=== PATIENT | male | born 1995 | race African-American/Black ===

== ENCOUNTER 2018-04-03 12:14 | Emergency (ER) | payer OTHER ==
[~2018-04-03] VITALS: Ht 170.2 cm; Wt 91.4 kg
[~2018-04-03 12:14] MED LIST: LURA80 PO
[2018-04-03 12:48] VITALS: BP 127/74
[2018-04-03 13:51] LABS: EOSINOPHILS % (AUTO) 2.5 % (1.0-6.0); HEMATOCRIT 39.4 % (41-53); HEMOGLOBIN 13.2 g/dL (13.5-17.5); LYMPHOCYTES # (AUTO) 2.7 K/uL (1.0-4.8); LYMPHOCYTES % (AUTO) 35.1 % (22.0-44.0); MEAN CORPUSCULAR HEMOGLOBIN 28.1 pg (26.0-34.0); MEAN CORPUSCULAR HGB CONC 33.5 G/dL (31.0-37.0); MEAN CORPUSCULAR VOLUME 84 fL (80-100); MONOCYTES # (AUTO) 0.7 K/uL (0.1-1.0); MONOCYTES % (AUTO) 8.9 % (2.0-9.0); NEUTROPHILS # (AUTO) 4.1 K/uL (1.8-7.7); NEUTROPHILS % (AUTO) 52.5 % (40.0-70.0); PLATELET COUNT (AUTO) 325 K/uL (150-450); RED BLOOD CELL COUNT(AUTO) 4.68 MIL/uL (4.50-5.90); RED CELL DISTRIBUTION WIDTH 14.3 % (11.5-14.5)
[2018-04-03 14:02] LABS: ANION GAP 10 mmol/L (8-16); CARBON DIOXIDE 26 mmol/L (22-29); CHLORIDE 104 mmol/L (98-107); CREATININE 0.98 mg/dL (0.60-1.30); GLOMERULAR FILTR. RATE CALC > 60 mL/min (>60); GLUCOSE,RANDOM 113 mg/dL (70-110); POTASSIUM 3.6 mmol/L (3.5-5.1); SODIUM SERUM 140 mmol/L (136-145); UREA NITROGEN, BLOOD 5 mg/dL (7-18)
[2018-04-03 14:08] LABS: ALANINE AMINOTRANSFERASE 22 U/L (12-78); ALBUMIN 3.5 g/dL (3.4-5.0); ALKALINE PHOSPHATASE 101 U/L (46-116); ASPARTATE AMINOTRANSFERASE 15 U/L (15-37); BILIRUBIN,TOTAL 0.4 mg/dL (0.1-1.0); TOTAL PROTEIN, SERUM 7.3 g/dL (6.4-8.2)
== END 2018-04-03 14:24 | disposition home or self-care (01) ==
LOC: EMS 12:16
DX: F32.9 Major depressive disorder, single episode, unspecified (principal); F20.9 Schizophrenia, unspecified
CPT/HCPCS: 36415; 80053; 85025; 99284; G0480

== ENCOUNTER 2019-12-23 17:09 | Emergency (ER) | payer OTHER ==
[~2019-12-23] VITALS: Ht 172.7 cm; Wt 86.4 kg
[~2019-12-23 17:09] MED LIST changes: -LURA80 PO; +LURA80TA2 PO
[2019-12-23] MEDS ORDERED: MULT1CAP32 PO (17:15)
[2019-12-23] MEDS ORDERED: HALO10 PO (17:15)
[2019-12-23] MEDS ORDERED: FLUO-191 PO (17:15)
[2019-12-23] MEDS ORDERED: OLAN7.5T2 PO ×2 (17:15→20:07)
[2019-12-23] MEDS ORDERED: BENZ2TAB10 PO (17:15)
[2019-12-23 19:35] LABS: BASOPHILS % (AUTO) 0.7 % (0.0-2.0); EOSINOPHILS % (AUTO) 1.3 % (1.0-6.0); HEMOGLOBIN 13.9 g/dL (13.5-17.5); LYMPHOCYTES # (AUTO) 3.7 K/uL (1.0-4.8); LYMPHOCYTES % (AUTO) 43.6 % (22.0-44.0); MEAN CORPUSCULAR HEMOGLOBIN 28.3 pg (26.0-34.0); MEAN CORPUSCULAR HGB CONC 33.2 G/dL (31.0-37.0); MEAN CORPUSCULAR VOLUME 86 fL (80-100); MONOCYTES # (AUTO) 0.7 K/uL (0.1-1.0); MONOCYTES % (AUTO) 8.2 % (2.0-9.0); NEUTROPHILS % (AUTO) 46.2 % (40.0-70.0); PLATELET COUNT (AUTO) 330 K/uL (150-450); RED BLOOD CELL COUNT(AUTO) 4.91 MIL/uL (4.50-5.90); RED CELL DISTRIBUTION WIDTH 13.6 % (11.5-14.5)
[2019-12-23 19:46] LABS: ANION GAP 7 mmol/L (8-16); CALCIUM, TOTAL 9.4 mg/dL (8.8-10.5); CARBON DIOXIDE 28 mmol/L (22-29); CHLORIDE 100 mmol/L (98-107); GLOMERULAR FILTR. RATE CALC > 60 mL/min (>60); GLUCOSE,RANDOM 92 mg/dL (70-110); POTASSIUM 3.8 mmol/L (3.5-5.1); SODIUM SERUM 135 mmol/L (136-145); UREA NITROGEN, BLOOD 6 mg/dL (7-18)
[2019-12-23 19:52] LABS: ALANINE AMINOTRANSFERASE 28 U/L (12-78); ALBUMIN 4.3 g/dL (3.4-5.0); ALKALINE PHOSPHATASE 94 U/L (46-116); ASPARTATE AMINOTRANSFERASE 17 U/L (15-37); BILIRUBIN,TOTAL 0.2 mg/dL (0.1-1.0); TOTAL PROTEIN, SERUM 8.4 g/dL (6.4-8.2)
[2019-12-23 20:18] VITALS: BP 128/68
== END 2019-12-23 20:30 | disposition home or self-care (01) ==
LOC: EMS 17:11
DX: F20.0 Paranoid schizophrenia (principal)
CPT/HCPCS: 36415; 80053; 85025; 99284; G0480

== ENCOUNTER 2024-01-22 18:26 | Inpatient (IN) | payer MEDICAID ==
[~2024-01-22] VITALS: Ht 172.7 cm; Wt 83.7 kg
[~2024-01-22 18:26] MED LIST changes: +BENZ2TAB84 PO; +FLUO-177 PO; +HALO10TA21 PO; -LURA80TA2 PO; +MULT1CAP32 PO; +OLAN7.5T22 PO
[2024-01-22] MEDS ORDERED: MULT-660 PO (19:14)
[2024-01-22] MEDS ORDERED: ZOLPIDEM TARTRATE 10 MG TABLET PO PRN (19:15)
[2024-01-22 20:00] LABS: GLUCOMETER DEV NAME(LOC) POC.BV; POC SARS-COV2 AG, FIA NEGATIVE (NEGATIVE)
[2024-01-22 20:12] VITALS: BP 105/66; PULSE 77; RESP 18; TEMP 97.7; O2SAT 99
[2024-01-23 09:07] VITALS: BP 128/69; PULSE 85; RESP 18; TEMP 97.7; O2SAT 98
[2024-01-23 09:51] LABS: BASOPHILS % (AUTO) 0.4 % (0.0-2.0); EOSINOPHILS % (AUTO) 0.6 % (1.0-6.0); HEMATOCRIT 46.3 % (41-53); HEMOGLOBIN 15.2 g/dL (13.5-17.5); LYMPHOCYTES # (AUTO) 1.3 K/uL (1.0-4.8); LYMPHOCYTES % (AUTO) 25.4 % (22.0-44.0); MEAN CORPUSCULAR HEMOGLOBIN 29.1 pg (26.0-34.0); MEAN CORPUSCULAR HGB CONC 32.8 G/dL (31.0-37.0); MEAN CORPUSCULAR VOLUME 89 fL (80-100); MONOCYTES # (AUTO) 0.5 K/uL (0.1-1.0); MONOCYTES % (AUTO) 9.2 % (2.0-9.0); NEUTROPHILS # (AUTO) 3.2 K/uL (1.8-7.7); NEUTROPHILS % (AUTO) 64.4 % (40.0-70.0); PLATELET COUNT (AUTO) 297 K/uL (150-450); RED BLOOD CELL COUNT(AUTO) 5.21 MIL/uL (4.50-5.90); RED CELL DISTRIBUTION WIDTH 13.8 % (11.5-14.5); WHITE BLOOD COUNT (AUTO) 4.9 K/uL (4.5-11.0)
[2024-01-23 10:10] LABS: ALANINE AMINOTRANSFERASE 24 U/L (12-78); ALKALINE PHOSPHATASE 66 U/L (46-116); ANION GAP 7 mmol/L (8-16); ASPARTATE AMINOTRANSFERASE 19 U/L (15-37); BILIRUBIN,TOTAL 0.8 mg/dL (0.1-1.0); CALCIUM, TOTAL 9.4 mg/dL (8.8-10.5); CARBON DIOXIDE 32 mmol/L (22-29); CHLORIDE 104 mmol/L (98-107); CHOL/HDL RATIO 3.7 (4.2-7.3); CHOLESTEROL 190 mg/dL (131-200); CREATININE 1.06 mg/dL (0.60-1.30); FREE T4 (FREE THYROXINE) 1.17 ng/dL (0.76-1.46); GLOMERULAR FILTR. RATE CALC > 60 mL/min (>60); GLUCOSE,RANDOM 90 mg/dL (70-110); HDL CHOLESTEROL 51 mg/dL (40-60); LDL CHOL (CALC.) 129 mg/dL (0-130); SODIUM SERUM 143 mmol/L (136-145); T4 (THYROXINE) 10.7 mcg/dL (4.7-13.3); THYROID STIMULATING HORMONE 1.25 uIU/mL (0.36-3.74); TOTAL PROTEIN, SERUM 7.8 g/dL (6.4-8.2); TRIGLYCERIDES 52 mg/dL (15-150); UREA NITROGEN, BLOOD 12 mg/dL (7-18)
[2024-01-23] MEDS: OLANZapine 5 MG TABLET PO SCH (13:48)
[2024-01-23] MEDS ORDERED: MAG HYDROX/ALUMINUM HYD/SIMETH ES 30 ML SUSPENSION UDCUP PO PRN (15:30)
[2024-01-23] MEDS ORDERED: GuaiFENesin/D-METHORPHAN [SUGAR-FREE] 200-20MG/10 ML SYRUP UDCUP PO PRN (15:30)
[2024-01-23] MEDS ORDERED: MAGNESIUM HYDROXIDE SUSPENSION 30 ML UDCUP PO PRN (15:30)
[2024-01-23] MEDS ORDERED: NICOTINE 14 MG/24 HOUR PATCH TD PRN (15:30)
[2024-01-23] MEDS ORDERED: LOPERAMIDE HCL 2 MG CAPSULE PO PRN (15:30)
[2024-01-23] MEDS ORDERED: CloNIDine HCL 0.1 MG TABLET PO PRN (15:30)
[2024-01-23] MEDS ORDERED: DOCUSATE SODIUM 100 MG CAPSULE PO PRN (15:30)
[2024-01-23] MEDS ORDERED: ONDANSETRON HCL 4 MG TABLET PO PRN (15:30)
[2024-01-23] MEDS ORDERED: ALBUTEROL SULFATE HFA 90 MCG/PUFF 8 GM INHALER IH PRN (15:30)
[2024-01-23] MEDS ORDERED: IBUPROFEN 400 MG TABLET PO PRN (15:30)
[2024-01-23] MEDS ORDERED: PETROLATUM,WHITE 28 GM JELLY TP PRN (15:30)
[2024-01-23] MEDS ORDERED: ACETAMINOPHEN 325 MG TABLET PO PRN (15:30)
[2024-01-23 20:25] VITALS: BP 134/75; PULSE 79; RESP 17; TEMP 97.9; O2SAT 99
[2024-01-24 08:44] LABS: HEMOGLOBIN A1C 5.7 % (3.8-5.6)
[2024-01-24 08:55] LABS: APPEARANCE,URINE HAZY (CLEAR); BILIRUBIN,URINE NEGATIVE (NEGATIVE); COLOR,URINE YELLOW (YELLOW); GLUCOSE, URINE (UA) NEGATIVE (NEGATIVE); KETONES,URINE NEGATIVE (NEGATIVE); LEUKOCYTE ESTERASE ,URINE NEGATIVE (NEGATIVE); NITRATE,URINE NEGATIVE (NEGATIVE); OCCULT BLOOD,URINE NEGATIVE (NEGATIVE); PROTEIN,URINE TRACE mg/dL (NEGATIVE); SPECIFIC GRAVITIY, URINE 1.022 (1.003-1.030)
[2024-01-24 09:03] VITALS: BP 104/69; PULSE 78; RESP 18; TEMP 97.8; O2SAT 91
[2024-01-24 09:03] LABS: ALCOHOL, URINE DRUG SCREEN NEGATIVE (NEGATIVE); AMPHET/METH SCREEN,URINE NEGATIVE (NEGATIVE); BARBITURATE SCREEN, URINE NEGATIVE (NEGATIVE); BENZODIAZEPINES SCREEN,URINE NEGATIVE (NEGATIVE); CANNABINOID SCREEN,URINE NEGATIVE (NEGATIVE); COCAINE SCREEN,URINE NEGATIVE (NEGATIVE); METHADONE SCREEN, URINE NEGATIVE (NEGATIVE); OPIATE SCREEN,URINE NEGATIVE (NEGATIVE); PHENCYCLIDINE SCREEN,URINE NEGATIVE (NEGATIVE)
[2024-01-24 09:06] LABS: CHOL/HDL RATIO 3.6 (4.2-7.3); THYROID STIMULATING HORMONE 1.27 uIU/mL (0.36-3.74)
[2024-01-24] MEDS: OLANZapine 7.5 MG TABLET PO SCH (16:56)
[2024-01-24 20:49] VITALS: BP 124/73; PULSE 101; RESP 18; TEMP 97.9; O2SAT 100
[2024-01-25 08:47] VITALS: BP 114/84; PULSE 92; RESP 18; TEMP 98; O2SAT 96
[2024-01-25 20:50] VITALS: BP 108/76; PULSE 100; RESP 20; TEMP 94.7; O2SAT 100
[2024-01-26 08:43] VITALS: BP 120/73; PULSE 95; RESP 19; TEMP 97.4; O2SAT 97
[2024-01-26] MEDS: LORazepam 2 MG TABLET PO PRN (18:23)
[2024-01-26] MEDS: HALOPERIDOL 5 MG TABLET PO PRN (18:23)
[2024-01-26 20:41] VITALS: BP 127/80; PULSE 96; RESP 20; TEMP 97.4; O2SAT 100
[2024-01-27 09:23] VITALS: BP 110/71; PULSE 95; RESP 20; TEMP 96.1; O2SAT 98
[2024-01-27 20:52] VITALS: BP 131/67; PULSE 108; RESP 20; TEMP 97.3; O2SAT 100
[2024-01-28 08:50] VITALS: BP 115/71; PULSE 100; RESP 17; TEMP 97.6; O2SAT 99
[2024-01-28 21:30] VITALS: BP 144/73; PULSE 91; RESP 18; TEMP 97.4; O2SAT 100
[2024-01-29 08:38] VITALS: BP 120/73; PULSE 82; RESP 18; TEMP 97.8; O2SAT 100
[2024-01-29] MEDS ORDERED: OLAN7.5T22 PO (16:50)
== END 2024-01-29 17:13 | disposition left against medical advice (07) | DRG 750 ==
LOC: B2S 19:06
PROVIDERS: ADMIT Psychiatry & Neurology Child & Adolescent Psychiatry; ATTEND Psychiatry & Neurology Child & Adolescent Psychiatry
PROC: GZHZZZZ Group Psychotherapy (ICD-10-PCS; principal; 2024-01-23)
PROC: GZ52ZZZ Individual Psychotherapy, Cognitive (ICD-10-PCS; 2024-01-23)
DX: F20.0 Paranoid schizophrenia (principal); R45.851 Suicidal ideations; G47.00 Insomnia, unspecified; F41.9 Anxiety disorder, unspecified; Z53.29 Procedure and treatment not carried out because of patient's decision for other reasons; Z20.822 Contact with and (suspected) exposure to COVID-19; Z79.899 Other long term (current) drug therapy
CPT/HCPCS: 80053; 80061; 80307; 81003; 83036; 84436; 84439; 84443; 85025; 86592